=== PATIENT | female | born 1985 ===

== ENCOUNTER 2017-01-30 00:02 | Emergency (ER) | payer MEDICAID ==
[2017-01-30 00:03] VITALS: BMI 25.7
[2017-01-30 00:11] VITALS: RESP 18; O2SAT 98
[2017-01-30 00:53] LABS: RBC URINE 2 /hpf (0-3); URINE BACTERIA RARE (<OCC); URINE BILIRUBIN NEGATIVE (NEGATIVE); URINE BLOOD NEGATIVE (NEGATIVE); URINE COLOR Yellow (YELLOW); URINE GLUCOSE (UA) NORMAL (Normal); URINE KETONE NEGATIVE (NEGATIVE); URINE LEUKOCYTE ESTERASE 2+ Leu/uL (Negative); URINE PROTEIN NEGATIVE (NEGATIVE); URINE UROBILINOGEN NORMAL mg/dL (0.2-1.0); WBC URINE 13 /hpf (0-5)
--- NOTE | 2017-01-30 01:24 | C.PDOC ---
History Of Present Illness 31 y/o female presents to ED with complaint of right lower back pain for 1 week. Patient reports pain is localized, worse with movement. Patient admits to test 1 week ago that was positive. She notes history of irregular menstrual period, LMP sometime in December. Patient denies history of ectopic or miscarriage. Denies fever, abdominal pain, vaginal bleeding, UTI symptoms. Time Seen by Provider: 01/30/17 00:23 Chief Complaint (Nursing): Back Pain History Per: Patient History/Exam Limitations: no limitations Onset/Duration Of Symptoms: Days Quality Of Discomfort: "Pain" Previous Symptoms: None Exacerbating Factor(s): Movement Recent travel outside of the [place]: No Past Medical History Reviewed: Historical Data, Nursing Documentation, Vital Signs Vital Signs: Last Vital Signs Temp 98.3 F 01/30/17 01:40 Pulse 72 01/30/17 01:40 Resp 18 01/30/17 01:40 BP 126/88 01/30/17 01:40 Pulse Ox 98 01/30/17 01:46 - Medical History PMH: No Chronic Diseases Family History: States: Unknown Family Hx - Social History Hx Alcohol Use: Yes Hx Substance Use: No - Immunization History Hx Tetanus Toxoid Vaccination: No Hx Influenza Vaccination: No Hx Pneumococcal Vaccination: No Review Of Systems Except As Marked, All Systems Reviewed And Found Negative. Constitutional: Negative for: Fever, Chills Cardiovascular: Negative for: Chest Pain Respiratory: Negative for: Cough Gastrointestinal: Negative for: Nausea, Vomiting, Abdominal Pain, Diarrhea Genitourinary: Negative for: Dysuria, Frequency, Vaginal Discharge, Vaginal Bleeding Musculoskeletal: Positive for: Back Pain Skin: Negative for: Rash Neurological: Negative for: Headache, Dizziness Physical Exam - Physical Exam Appears: Well, Non-toxic, No Acute Distress Skin: Normal Color, Warm, No Rash Eye(s): bilateral: PERRL Nose: Normal, No Discharge Oral Mucosa: Moist Throat: Normal, No Erythema, No Exudate, No Drooling Neck: Normal ROM, Trachea Midline, Supple Cardiovascular: Rhythm Regular Respiratory: Normal Breath Sounds, No Stridor, No Wheezing Gastrointestinal/Abdominal: Soft, No Tenderness, No Distention, No Guarding Back: No CVA Tenderness, No Vertebral Tenderness, Paraspinal Tenderness (mild Right sided lumbar tenderness extend down to gluteus. NO palpable deformity, no skin changes.) Extremity: Normal ROM, No Pedal Edema Neurological/Psych: Oriented x3, Normal Speech ED Course And Treatment - Laboratory Results Urine POC: Positive O2 Sat by Pulse Oximetry: 98 Pulse Ox Interpretation: Normal Progress Note: On re-eval, pt is afebrile, hemodynamicaly stable. Non-toxic. AMbulatory in ED with stable gait. PusleOx 100% RA. ENT: No acute findings. Lungs: CTA B/L, BS equal B/L. Abd: benign, (-) guarding, (-) rebound. Back: (- ) CVA tenderness. UA results review and c/w early UTI. Preg (+). Pt has clinical findings c/w Right lower back strain, UTI, incidental findings. Pt advised. ref. to F/u with PMD, NURSE ASSESSOR in 1-2 days for re-eval. return to ED if any worsening or new changes. Disposition Counseled Patient/Family Regarding: Studies Performed, Diagnosis, Need For Followup, Rx Given - [facility]position [facility] Disposition: HOME/ ROUTINE Disposition Time: 01:05 Condition: STABLE Additional Instructions: Encourage fluids Light duty to lower back, avoid heavy lifting Take medication as prescribed Follow up with NURSE ASSESSOR in 2-3 days for re-evaluation. Return to ED at any time if nay worsening or new changes. Prescriptions: Nitrofurantoin Macrocrystals [Macrobid] 1 cap PO BID #14 cap Vit/Iron Fumarate/FA [ Tablet] 1 each PO DAILY #30 tablet Instructions: (ED), Urinary Tract Infection in (ED) - Clinical Impression Clinical Impression: Low back pain, UTI (urinary tract infection), as incidental finding - PA / HYPERTRICHOLOGIST / Resident Statement MD/DO has reviewed & agrees with the documentation as recorded. - Scribe Statement The provider has reviewed the documentation as recorded by the Daniel Manuel Provider Scribe Attestation: All medical record entries made by the Daniel were at my direction and personally dictated by me. I have reviewed the chart and agree that the record accurately reflects my personal performance of the history, physical exam, medical decision making, and the department course for this patient. I have also personally directed, reviewed, and agree with the discharge instructions and disposition.
[2017-01-30 01:43] VITALS: BP 126/88; PULSE 72; TEMP 98.3
== END 2017-01-30 01:40 | disposition home or self-care (01) ==
LOC: C.ER 00:02
DX: N39.0 Urinary tract infection, site not specified (principal); M54.5 Low back pain; Z33.1 Pregnant state, incidental